=== PATIENT | male | born 1990 | race African-American/Black ===

== ENCOUNTER 2016-08-18 15:38 | Observation (INO) | payer OTHER ==
[2016-08-18] MEDS ORDERED: SODIUM CHLORIDE 0.9% 1,000 ML IV STA ×3 (16:11→17:33)
[2016-08-18] MEDS ORDERED: ONDANSETRON 4 MG/2 ML VIAL IVP STA (16:11)
--- NOTE | 2016-08-18 16:13 | ED ---
General Adult HPI <Crescencio Singh - Last Filed: 08/18/16 18:53> - General Source: patient, RN notes reviewed Mode of arrival: ambulatory Limitations: no limitations <Brent Bowles - Last Filed: 08/18/16 19:27> - General Chief complaint: Nausea/Vomiting/Diarrhea Stated complaint: cannot stop shaking/vomiting Time Seen by Provider: 08/18/16 16:06 - History of Present Illness Initial comments: Patient 25-year-old male who presents emergency room today with a chief complaint of nausea vomiting that started this morning waking up. He does admit some abdominal pain as crampy in nature. Patient denies any other complaints or associated symptoms. Patient denies any recent fever, chills, shortness of breath, chest pain, back pain, numbness or tingling, dysuria or hematuria, constipation or diarrhea, headaches or visual changes, or any other complaints. (Brent Bowles) - Related Data Home Medications Medication Instructions Recorded Confirmed No Known Home Medications [No 08/18/16 08/18/16 Known Home Medications] Allergies Allergy/AdvReac Type Severity Reaction Status Date / Time No Known Allergies Allergy Verified 08/18/16 16:08 Review of Systems ROS Other: All systems not noted in ROS Statement are negative. <Crescencio Singh - Last Filed: 08/18/16 18:53> ROS Other: All systems not noted in ROS Statement are negative. <Brent Bowles - Last Filed: 08/18/16 19:27> ROS Statement: Those systems with pertinent positive or pertinent negative responses have been documented in the HPI. Past Medical History Past Medical History: No Reported History History of Any Multi-Drug Resistant Organisms: None Reported Past Surgical History: Orthopedic Surgery Additional Past Surgical History / Comment(s): left foot surgery Past Psychological History: No Psychological Hx Reported Smoking Status: Current some day smoker Past Alcohol Use History: Occasional Past Drug Use History: Marijuana <Brent Bowles - Last Filed: 08/18/16 19:27> General Exam <Crescencio Singh - Last Filed: 08/18/16 18:53> Limitations: no limitations <Brent Bowles - Last Filed: 08/18/16 19:27> - General Exam Comments Initial Comments: General: The patient is awake and alert, in no distress, and does not appear acutely ill. Eye: Pupils are equal, round and reactive to light, extra-ocular movements are intact. No nystagmus. There is normal conjunctiva bilaterally. No signs of icterus. Ears, nose, mouth and throat: There are moist mucous membranes and no oral lesions. Neck: The neck is supple, there is no tenderness or JVD. Cardiovascular: There is a regular rate and rhythm. No murmur, rub or gallop is appreciated. Respiratory: Lungs are clear to auscultation, respirations are non-labored, breath sounds are equal. No wheezes, stridor, rales, or rhonchi. Gastrointestinal: Normal exam. Normal bowel sounds. Abdomen soft on palpation. Patient doesn't mild tenderness right side of the abdomen. No rebound tenderness or guarding. No CVA tenderness. Musculoskeletal: Normal ROM, no tenderness. Strength 5/5. Sensation intact. Pulses equal bilaterally 2+. Neurological: A&O x 3. CN II-XII intact, There are no obvious motor or sensory deficits. Coordination appears grossly intact. Speech is normal. Skin: Skin is warm and dry and no rashes or lesions are noted. Psychiatric: Cooperative, appropriate mood & affect, normal judgment. (Brent Bowles) Medical Decision Making - Lab Data Result diagrams: 08/18/16 16:35 08/18/16 16:35 <Crescencio Singh - Last Filed: 08/18/16 18:53> - Lab Data Result diagrams: 08/18/16 16:35 08/18/16 16:35 <Brent Bowles - Last Filed: 08/18/16 19:27> - Medical Decision Making Medical decision-making. Labs reviewed and history reviewed. The patient has mild discomfort to the right lower quadrant slightly below where you would expect to find the appendix but he vomited once. Decreased appetite today. White count normal but his plasma lactic acid is elevated at 4. CAT scan was done, unable to visualize the appendix. No guarding no rebound or referred pain. The plan, the patient will be admitted for observation. Dr. Singh (Crescencio Singh) - Lab Data Lab Results 08/18/16 08/18/16 08/18/16 Range/Units 16:35 16:35 16:35 WBC 10.6 (3.8-10.6) k/uL RBC 4.19 L (4.30-5.90) m/uL Hgb 14.0 (13.0-17.5) gm/dL Hct 40.0 (39.0-53.0) % MCV 95.6 (80.0-100.0) fL MCH 33.4 (25.0-35.0) pg MCHC 34.9 (31.0-37.0) g/dL RDW 12.8 (11.5-15.5) % Plt Count 182 (150-450) k/uL Neutrophils % 81 % Lymphocytes % 11 % Monocytes % 6 % Eosinophils % 2 % Basophils % 0 % Neutrophils # 8.6 H (1.3-7.7) k/uL Lymphocytes # 1.2 (1.0-4.8) k/uL Monocytes # 0.6 (0-1.0) k/uL Eosinophils # 0.2 (0-0.7) k/uL Basophils # 0.0 (0-0.2) k/uL Sodium 144 (137-145) mmol/L Potassium 3.2 L (3.5-5.1) mmol/L Chloride 105 (98-107) mmol/L Carbon Dioxide 24 (22-30) mmol/L Anion Gap 15 mmol/L BUN 7 L (9-20) mg/dL Creatinine 1.02 (0.66-1.25) mg/dL Est GFR (MDRD) Af Amer >60 (>60 ml/min/1.73 sqM) Est GFR (MDRD) Non-Af >60 (>60 ml/min/1.73 sqM) Glucose 94 (74-99) mg/dL Plasma Lactic Acid Kirs 4.0 H* (0.7-2.0) mmol/L Calcium 9.6 (8.4-10.2) mg/dL Total Bilirubin 1.2 (0.2-1.3) mg/dL AST 21 (17-59) U/L ALT 22 (21-72) U/L Alkaline Phosphatase 66 (38-126) U/L Total Protein 7.3 (6.3-8.2) g/dL Albumin 4.6 (3.5-5.0) g/dL Amylase 55 (30-110) U/L Lipase 79 (23-300) U/L Urine Color Urine Appearance (Clear) Urine pH (5.0-8.0) Ur Specific [place] (1.001-1.035) Urine Protein (Negative) Urine Glucose (UA) (Negative) Urine Ketones (Negative) Urine Blood (Negative) Urine Nitrate (Negative) Urine Bilirubin (Negative) Urine Urobilinogen (<2.0) mg/dL Ur Leukocyte Esterase (Negative) Urine RBC (0-5) /hpf Urine WBC (0-5) /hpf Urine Mucus (None) /hpf 08/18/16 Range/Units 18:03 WBC (3.8-10.6) k/uL RBC (4.30-5.90) m/uL Hgb (13.0-17.5) gm/dL Hct (39.0-53.0) % MCV (80.0-100.0) fL MCH (25.0-35.0) pg MCHC (31.0-37.0) g/dL RDW (11.5-15.5) % Plt Count (150-450) k/uL Neutrophils % % Lymphocytes % % Monocytes % % Eosinophils % % Basophils % % Neutrophils # (1.3-7.7) k/uL Lymphocytes # (1.0-4.8) k/uL Monocytes # (0-1.0) k/uL Eosinophils # (0-0.7) k/uL Basophils # (0-0.2) k/uL Sodium (137-145) mmol/L Potassium (3.5-5.1) mmol/L Chloride (98-107) mmol/L Carbon Dioxide (22-30) mmol/L Anion Gap mmol/L BUN (9-20) mg/dL Creatinine (0.66-1.25) mg/dL Est GFR (MDRD) Af Amer (>60 ml/min/1.73 sqM) Est GFR (MDRD) Non-Af (>60 ml/min/1.73 sqM) Glucose (74-99) mg/dL Plasma Lactic Acid Kris (0.7-2.0) mmol/L Calcium (8.4-10.2) mg/dL Total Bilirubin (0.2-1.3) mg/dL AST (17-59) U/L ALT (21-72) U/L Alkaline Phosphatase (38-126) U/L Total Protein (6.3-8.2) g/dL Albumin (3.5-5.0) g/dL Amylase (30-110) U/L Lipase (23-300) U/L Urine Color Yellow Urine Appearance Clear (Clear) Urine pH 8.5 H (5.0-8.0) Ur Specific [place] 1.050 H (1.001-1.035) Urine Protein 1+ H (Negative) Urine Glucose (UA) Negative (Negative) Urine Ketones Negative (Negative) Urine Blood Negative (Negative) Urine Nitrate Negative (Negative) Urine Bilirubin Negative (Negative) Urine Urobilinogen 2.0 (<2.0) mg/dL Ur Leukocyte Esterase Negative (Negative) Urine RBC 4 (0-5) /hpf Urine WBC 7 H (0-5) /hpf Urine Mucus Rare H (None) /hpf Disposition <Crescencio Singh - Last Filed: 08/18/16 18:53> Time of Disposition: 19:27 <Brent Bowles - Last Filed: 08/18/16 19:27> Clinical Impression: Abdominal pain, Elevated lactic acid level, Nausea & vomiting Disposition: ADMITTED IP TO THIS [facility] Condition: Stable
--- NOTE | 2016-08-18 16:47 | XR ---
EXAMINATION TYPE: XR KUB DATE OF EXAM: 08/18/2016 4:42 PM CLINICAL HISTORY: Abdominal pain with nausea and vomiting today. TECHNIQUE: 2 upright KUB images of the abdomen and pelvis are obtained COMPARISON: None. FINDINGS: Scattered gas is seen in non-distended small bowel loops. Gas and fecal material is seen in non-distended colon. There is no visceromegaly, pneumoperitoneum, or abnormal calcification appr eciated. The lung bases are clear and the osseous structures are intact. IMPRESSION: Overall nonobstructive bowel gas pattern.
[2016-08-18 16:48] LABS: Basophils % (A) 0 %; CH 34.4; CHCM 36.1; Eosinophils # (A) 0.2 k/uL (0-0.7); Eosinophils % (A) 2 %; HDW 2.81; Luc # (Auto) 0.09; Luc % (Auto) 1; Lymphocytes # (A) 1.2 k/uL (1.0-4.8); Lymphocytes % (A) 11 %; MCH 33.4 pg (25.0-35.0); MCHC 34.9 g/dL (31.0-37.0); MCV 95.6 fL (80.0-100.0); Mean Platelet Volume 7.5; Monocytes # (A) 0.6 k/uL (0-1.0); Monocytes % (A) 6 %; Neutrophils # (A) 8.6 k/uL (1.3-7.7); Neutrophils % (A) 81 %; RBC 4.19 m/uL (4.30-5.90); RDW 12.8 % (11.5-15.5); WBC 10.6 k/uL (3.8-10.6); WBC (Perox) 11.07
[2016-08-18 17:00] LABS: ALT 22 U/L (21-72); AST 21 U/L (17-59); Alkaline Phosphatase 66 U/L (38-126); Amylase 55 U/L (30-110); Anion Gap 15 mmol/L; Blood Urea Nitrogen 7 mg/dL (9-20); Calcium 9.6 mg/dL (8.4-10.2); Carbon Dioxide 24 mmol/L (22-30); Chloride 105 mmol/L (98-107); Glucose 94 mg/dL (74-99); Non-African American GFR(MDRD) >60 (>60 ml/min/1.73 sqM); Potassium 3.2 mmol/L (3.5-5.1); Sodium 144 mmol/L (137-145); Total Bilirubin 1.2 mg/dL (0.2-1.3); Total Protein 7.3 g/dL (6.3-8.2)
[2016-08-18] MEDS ORDERED: RX INFO: IV CONTRAST WAS GIVEN 1 EACH MISC MISCELLANE PRN (17:08)
--- NOTE | 2016-08-18 17:40 | CT ---
EXAMINATION TYPE: CT abdomen pelvis w con DATE OF EXAM: 08/18/2016 5:33 PM COMPARISON: NONE HISTORY: Pelvic pain today CT DLP: 328.8 mGycm Automated exposure control for dose reduction was used. TECHNIQUE: Helical acquisition of images was performed from the lung bases through the pelvis. CONTRAST: Performed without Oral Contrast and with IV Contrast, patient injected with 100 mL of Omnipaque 300. FINDINGS: Lung bases are clear of infiltrate. There is no pleural effusion. The liver spleen pancreas and gallb ladder appear normal. Bile ducts are not dilated. There is no adrenal mass. Kidneys show satisfactory contrast opacification. There is no hydronephrosis. Ureters are not dilated. There is no retroperito meredith adenopathy. There is no ascites. Bladder distends smoothly. Bony structures are intact. Appendix is not definitely seen. There is no sign of appendicitis. I see no intestinal wall thickening. There are no dilated loops. There is no sign of a hernia. IMPRESSION: NEGATIVE CT SCAN OF THE ABDOMEN AND PELVIS.
[2016-08-18 18:26] LABS: Appearance,Urine Clear (Clear); Bilirubin,Urine Negative (Negative); Glucose,Urine (UA) Negative (Negative); Ketones,Urine Negative (Negative); Leukocyte Esterase,Urine Negative (Negative); Mucus,Urine Rare /hpf; Nitrite,Urine Negative (Negative); PH, Urine 8.5 (5.0-8.0); Particle Count 1509; Protein,Urine 1+ (Negative); RBC,Urine 4 /hpf (0-5); UA Billing (MACRO vs. MICRO) MICRO; WBC,Urine 7 /hpf (0-5)
[2016-08-18] MEDS ORDERED: ACETAMINOPHEN TAB 325 MG TAB PO PRN (19:27)
[2016-08-18] MEDS ORDERED: SODIUM CHLORIDE 0.9% 1,000 ML IV ONE (19:27)
[2016-08-18] MEDS ORDERED: HYDROmorphone 1 MG/ML 1 ML SYRINGE IV PRN (19:27)
[2016-08-18] MEDS ORDERED: NALOXONE 0.4 MG/ML 1 ML VIAL IV PRN (19:27)
[2016-08-18] MEDS ORDERED: ONDANSETRON 4 MG/2 ML VIAL IVP PRN (19:27)
[2016-08-18] MEDS ORDERED: Potassium Replacement Protocol 1 EACH MISC MISCELLANE PRN (22:45)
[2016-08-18] MEDS: POTASSIUM CHLORIDE 10 MEQ, LIDOCAINE 2% INJ 10 MG in SODIUM CHLORIDE 0.9% 100 ML IV SCH (23:28)
[2016-08-18 23:55] VITALS: RESP 16
[2016-08-19] MEDS: POTASSIUM CHLORIDE 10 MEQ, LIDOCAINE 2% INJ 10 MG in SODIUM CHLORIDE 0.9% 100 ML IV SCH ×3 (00:46→13:16)
[2016-08-19 08:42] LABS: Basophils % (A) 0 %; CH 33.7; CHCM 34.1; Eosinophils # (A) 0.1 k/uL (0-0.7); Eosinophils % (A) 1 %; HCT 38.3 % (39.0-53.0); HDW 2.79; HGB 12.7 gm/dL (13.0-17.5); Luc # (Auto) 0.08; Luc % (Auto) 2; Lymphocytes # (A) 1.1 k/uL (1.0-4.8); Lymphocytes % (A) 21 %; MCH 32.8 pg (25.0-35.0); MCV 99.2 fL (80.0-100.0); Mean Platelet Volume 7.5; Monocytes # (A) 0.5 k/uL (0-1.0); Monocytes % (A) 9 %; Neutrophils # (A) 3.5 k/uL (1.3-7.7); Neutrophils % (A) 67 %; RBC 3.86 m/uL (4.30-5.90); WBC 5.2 k/uL (3.8-10.6); WBC (Perox) 5.24
[2016-08-19 08:54] LABS: ALT 22 U/L (21-72); AST 16 U/L (17-59); Alkaline Phosphatase 63 U/L (38-126); Anion Gap 9 mmol/L; Blood Urea Nitrogen 7 mg/dL (9-20); Calcium 8.8 mg/dL (8.4-10.2); Carbon Dioxide 24 mmol/L (22-30); Chloride 111 mmol/L (98-107); Glucose 66 mg/dL (74-99); Non-African American GFR(MDRD) >60 (>60 ml/min/1.73 sqM); Potassium 3.4 mmol/L (3.5-5.1); Sodium 144 mmol/L (137-145); Total Bilirubin 2.2 mg/dL (0.2-1.3)
[2016-08-19] MEDS ORDERED: Potassium Replacement Protocol 1 EACH MISC MISCELLANE PRN (09:54)
[2016-08-19] MEDS ORDERED: POTASSIUM CHLORIDE ER 20 MEQ TAB.ER PO STA (12:40)
[2016-08-19 14:34] VITALS: BP 137/81; PULSE 84; TEMP 97.7
--- NOTE | 2016-08-19 19:34 | HP ---
DATE OF ADMISSION: A 25-year-old came to emergency department with nausea, vomiting, abdominal pain in the right lower quadrant, crampy in nature. Symptoms completely resolve. Denied any fever, chills. Patient had multiple such episodes with some electrolyte abnormalities. The patient was given IV fluids and supplemented potassium. The patient is clinically doing well. Will be discharged today. Patient denied any dysuria, nausea, vomiting. Patient did eat Maltese fried rice about 12 hours prior to his symptom onset. REVIEW OF SYSTEMS: CONSTITUTIONAL: No fever, no malaise, no fatigue. HEENT: No recent visual problems or hearing problems. Denied any sore throat. CARDIOVASCULAR: No chest pain, orthopnea, PND, no palpitations, no syncope. PULMONARY: No shortness of breath, no cough, no hemoptysis. GASTROINTESTINAL: As described in HPI. NEUROLOGICAL: No headaches, no weakness, no numbness. HEMATOLOGICAL: Denies any bleeding or petechiae. GENITOURINARY: Denies any burning micturition, frequency, or urgency. MUSCULOSKELETAL/RHEUMATOLOGICAL: Denies any joint pain, swelling, or any muscle pain. ENDOCRINE: Denies any polyuria or polydipsia. The rest of the 14 point review of systems is negative. ALLERGIES: No known drug allergies. PAST MEDICAL HISTORY: Orthopedic surgery in the past. SOCIAL HISTORY: The patient does smoke less than a pack a day. Denied any alcohol abuse. Occasional use of marijuana. PHYSICAL EXAMINATION: GENERAL: The patient is alert and oriented x3, not in any acute distress. Well developed, well nourished. HEENT: Pupils are round and equally reacting to light. EOMI. No scleral icterus. No conjunctival pallor. Normocephalic, atraumatic. No pharyngeal erythema. No thyromegaly. CARDIOVASCULAR: S1 and S2 present. No murmurs, rubs, or gallops. PULMONARY: Chest is clear to auscultation, no wheezing or crackles. ABDOMEN: Soft, nontender, nondistended, normoactive bowel sounds. No palpable organomegaly. MUSCULOSKELETAL: No joint swelling or deformity. EXTREMITIES: No cyanosis, clubbing, or pedal edema. NEUROLOGICAL: Gross neurological examination did not reveal any focal deficits. SKIN: No rashes. LABORATORY DATA: CBC, CMP, essentially within normal limits except for mildly low potassium, which was supplemented. UA is negative. ASSESSMENT AND PLAN: 1. Nausea, vomiting and diarrhea. Patient probably has viral gastroenteritis or food poisoning. The patient is clinically doing well. Patient received IV fluid resuscitation. Patient will be discharged today. 2. Hypokalemia secondary to nausea, vomiting, which improved as well after supplementation. Patient will be discharged today. Patient will be referred to Dr. Hillman. Patient will follow with Dr. Hillman on August 26 at 1:30 p.m. Activity as tolerated. Regular diet.
== END 2016-08-19 14:56 | disposition home or self-care (01) ==
LOC: EC 15:38 → 4MS4W 19:27
PROVIDERS: ADMIT Internal Medicine; ATTEND Internal Medicine
DX: R11.2 Nausea with vomiting, unspecified (principal); R19.7 Diarrhea, unspecified; E87.6 Hypokalemia; R10.31 Right lower quadrant pain; F17.200 Nicotine dependence, unspecified, uncomplicated; R74.0 Nonspecific elevation of levels of transaminase and lactic acid dehydrogenase [LDH]; F12.90 Cannabis use, unspecified, uncomplicated
CPT/HCPCS: 36415; 80053 ×2; 82150; 83605; 83690; 85025 ×2; 81001; 87086; 74000; 74177; 99285; 96375; 96361; G0378 ×2; J2001 ×2; J2405; J3480 ×2; Q9967; 96365; 96366